=== PATIENT | female | born 1960 | race Caucasian/White ===

== ENCOUNTER 2017-10-24 09:18 | Day surgery (SDC) | payer OTHER ==
[2017-10-24] MEDS ORDERED: FENTAnyl 50 MCG/ML VIAL (12:06)
[2017-10-24] MEDS ORDERED: MIDAZOLAM 1 MG/ML 2 ML INJ ×2 (12:06)
== END 2017-10-24 15:15 | disposition home or self-care (01) ==
LOC: GIL 09:18
DX: K92.1 Melena (principal); K29.50 Unspecified chronic gastritis without bleeding; D12.4 Benign neoplasm of descending colon; K64.4 Residual hemorrhoidal skin tags; E11.9 Type 2 diabetes mellitus without complications
CPT/HCPCS: 43239; 88305; 88312

== ENCOUNTER 2019-01-28 21:41 | Emergency (ER) | payer OTHER ==
[2019-01-28 22:13] LABS: URINE PH (Dip) POC 5.5 (5.0-8.5)
[2019-01-28 22:13] LABS: URINE BLOOD (Dip) POC 3+ (NEGATIVE); URINE KETONES (Dip) POC 3+ (NEGATIVE); URINE LEUKOCYTE EST (Dip) POC Trace (NEGATIVE); URINE NITRITE (Dip) POC Positive (NEGATIVE); URINE TOTAL PROTEIN POC 3+ (NEGATIVE)
[2019-01-28] MEDS: ONDANSETRON 4 MG INJ IV (22:21)
[2019-01-28] MEDS: SODIUM CHLORIDE 0.9% 1L BAG IV* (22:21)
[2019-01-28] MEDS: KETOROLAC 30 MG INJ IV (22:22)
[2019-01-28 22:31] LABS: ADD MAN DIFF? NO
[2019-01-28 22:34] LABS: WHITE BLOOD COUNT 13.1 10^3/ul (4.8-10.8)
[2019-01-28 22:34] LABS: BASOPHILS % 0.3 % (0.0-2.0); EOSINOPHILS % 0.3 % (0.0-7.0); HEMATOCRIT 40.2 % (37.0-47.0); HEMOGLOBIN 13.7 g/dl (12.0-16.0); LYMPHOCYTES # 0.9 10^3/ul (0.8-2.9); LYMPHOCYTES % 7.1 % (15.0-51.0); MEAN CORPUSCULAR HGB CONC 34.1 g/dl (32.0-37.0); MONOCYTE # 0.6 10^3/ul (0.3-0.9); MONOCYTES % 4.6 % (0.0-11.0); NEUTROPHIL # 11.4 10^3/ul (1.6-7.5); NEUTROPHILS % 87.2 % (39.0-77.0); PLATELET COUNT 255 10^3/UL (140-415); RED BLOOD COUNT 4.57 10^6/ul (4.20-5.40); RED CELL DISTRIBUTION WIDTH 12.2 % (11.5-14.5)
[2019-01-28 22:49] LABS: INR 0.84; PARTIAL THROMBOPLASTIN TIME 24.4 Sec (23.0-35.0); PROTIME 11.6 Sec (11.9-14.9); PT RATIO 0.9
[2019-01-28 22:51] LABS: ALANINE AMINOTRANSFERASE 44 IU/L (13-69); ALBUMIN 4.5 g/dl (3.3-4.9); ALBUMIN/GLOBULIN RATIO 1.36; ALKALINE PHOSPHATASE 156 IU/L (42-121); ANION GAP 9 (5-13); ASPARTATE AMINO TRANSFERASE 32 IU/L (15-46); BILIRUBIN,INDIRECT 0.4 mg/dl (0-1.1); BILIRUBIN,TOTAL 0.4 mg/dl (0.2-1.3); BLOOD UREA NITROGEN 23 mg/dl (7-20); CALCIUM 9.9 mg/dl (8.4-10.2); CARBON DIOXIDE 31 mmol/L (21-31); CHLORIDE 99 mmol/L (97-110); CREATININE 0.55 mg/dl (0.44-1.00); Estimated GFR > 60 mL/min (>60); GLUCOSE 298 mg/dl (70-220); POTASSIUM 4.7 mmol/L (3.5-5.1); SODIUM 139 mmol/L (135-144); TOTAL PROTEIN 7.8 g/dl (6.1-8.1)
[2019-01-28 23:02] LABS: TROPONIN-I < 0.012 ng/ml (0.000-0.120)
[2019-01-29] MEDS: CEFTRIAXONE 1 GM/50 ML (PMX) 50 ML IVPB
[2019-01-29] MEDS: morphine 4 MG/ML VIAL IV (00:06)
[2019-01-29] MEDS: ONDANSETRON 4 MG INJ IV (00:06)
== END 2019-01-29 01:12 | disposition home or self-care (01) ==
LOC: E/R 01-29 01:12
DX: N12 Tubulo-interstitial nephritis, not specified as acute or chronic (principal); I10 Essential (primary) hypertension; E11.9 Type 2 diabetes mellitus without complications; Z79.84 Long term (current) use of oral hypoglycemic drugs
CPT/HCPCS: 71045; 74176; 80053; 81003; 83605; 84484; 85025; 85610; 85730; 87040-91; 93005; 96374; 96375; 96376; 99285-25